=== PATIENT | male | born 1995 | race Asian ===

== ENCOUNTER 2017-08-20 02:36 | Emergency (ER) | payer OTHER ==
[2017-08-20 07:40] VITALS: BP 116/73
--- NOTE | 2017-08-22 13:51 | ED ---
Lars Campos Tiffany, scribed for Misael Eagle MD on 08/20/17 at 0407 . Substance Abuse/Use - HPI Summary HPI Summary: This patient is a 21 year old M BIBA to [facility] with a chief complaint of ETOH intoxication since minutes ago. Per EMS, patient's friends called EMS. Symptoms aggravated by nothing. Symptoms alleviated by nothing. LEVEL 5 CAVEAT: HPI is limited due to ETOH intoxication. - History Of Current Complaint Chief Complaint: EDSubstanceAbuse Stated Complaint: ETOH Hx Obtained From: EMS Onset/Duration of Drug/ETOH Abuse: Minutes Aggravating Factor(s): Nothing Alleviating Factor(s): Nothing PMH/Surg Hx/FS Hx/Imm Hx Previously Healthy: Yes - LEVEL 5 CAVEAT: PMHx is limited due to ETOH intoxication Infectious Disease History: Unable to Obtain/Confirm Infectious Disease History: Denies: Traveled Outside the [place] in Last 30 Days - Social History Alcohol Use: unknown Substance Use Type: Reports: Other Smoking Status (MU): Unknown if Ever Smoked Review of Systems - ROS Summary Review of Systems Summary: unable to elicit due to etoh intoxication Negative: Fever Positive: Other - ETOH intoxication All Other Systems Reviewed And Are Negative: Yes Physical Exam - Summary Physical Exam Summary: Appearance: Intoxicated Skin: Warm Eyes: Normal ENT: Normal Neck: Supple, nontender Respiratory: Clear to auscultation Cardiovascular: Normal S1, S2. No murmurs. Normal distal pulses in tibial and radial bilaterally. Abdomen: Soft, nontender Musculoskeletal: Normal, Strength/ROM Intact Neurological: Pupils are 3mm and equal Psychiatric: Normal Triage Information Reviewed: Yes Vital Signs On Initial Exam: Initial Vitals Temp Pulse Resp BP Pulse Ox 96.9 F 79 20 103/64 100 08/20/17 02:40 08/20/17 02:40 08/20/17 02:40 08/20/17 02:40 08/20/17 02:40 Vital Signs Reviewed: Yes Diagnostics - Vital Signs Vital Signs Temp Pulse Resp BP Pulse Ox 08/20/17 03:30 87 100/56 100 08/20/17 03:20 85 100 08/20/17 02:40 96.9 F 79 20 103/64 100 - Laboratory Lab Statement: Any lab studies that have been ordered have been reviewed, and results considered in the medical decision making process. Course/Dx - Course Assessment/Plan: exam drastically improved after observation, instructed to refrain from etoh use. ambulating and conversational. - Diagnoses Provider Diagnoses: Alcohol intoxication Discharge - Discharge Plan Condition: Stable Disposition: HOME Patient Education Materials: Alcohol Intoxication (ED) Referrals: [facility] [Primary Care Provider] - Additional Instructions: PLEASE MAKE AN APPOINTMENT TO SEE YOUR PRIMARY CARE PROVIDER WITHIN 3-5 DAYS. PLEASE RETURN TO THE ED TO IMMEDIATELY FOR WORSENING OR CONCERNING SYMPTOMS. The documentation as recorded by the Lars faustin Tiffany accurately reflects the service I personally performed and the decisions made by , Misael Eagle MD.
== END 2017-08-20 07:51 | disposition home or self-care (01) ==
LOC: ED 02:36
DX: F10.129 Alcohol abuse with intoxication, unspecified (principal)
CPT/HCPCS: 99282